=== PATIENT | female | born 1985 | race Caucasian/White ===

== ENCOUNTER → 2017-08-24 | Outpatient (CLI) | payer OTHER ==
--- NOTE | 2017-08-24 17:31 | RADIOLOGY IMAGING REPORT ---
FACILITY: [facility] PATIENT NAME: Kathryn Jones : 1985 MR: [id number] V: [id number] EXAM DATE: ORDERING PHYSICIAN: [facility] TECHNOLOGIST: Location: [facility] Patient: Kathryn Jones : 1985 Visit/Account:[id number] Date of Sevice: 08/24/2017 TRANSVAGINAL NON-OB HISTORY: Pelvic and perineal pain TECHNIQUE: Transvaginal ultrasound pelvis. COMPARISON: None. FINDINGS: Uterus: ; 5.3 cm length x 2.5 cm AP x 3.2 cm transverse. Myometrium: Mildly heterogeneous. Endometrium: Heterogeneous; double thickness 7.1 mm. There is a linear echogenic structure in the en dometrial canal in the lower uterine segment which may represent an IUD. If this is in fact an IUD i s positioned low. Cervix: Grossly negative. Ovaries: Right - not visualized Left - not visualized Adnexa: Grossly unremarkable. Free pelvic fluid: None. IMPRESSION: Endometrium appears extremely heterogeneous in the myometrium appears mildly heterogeneous therefore clinical correlation needed. The examination was technically difficult by technologist notation due to patient's body habitus There is a linear echogenic structure in the endometrial canal the lower uterine segment which may re present an IUD. If this in fact is an IUD is positioned low. Neither ovary could be seen Report Dictated By: Suyapa Merritt MD at 08/24/2017 5:21 PM Report E-Signed By: Suyapa Merritt MD at 08/24/2017 5:27 PM WSN:[email or web address]
== END ==
LOC: US 12:25
DX: R10.2 Pelvic and perineal pain (principal)
CPT/HCPCS: 76830